=== PATIENT | female | born 1995 | race Caucasian/White ===

== ENCOUNTER 2020-06-01 16:27 | Emergency (ER) | payer OTHER ==
[~2020-06-01] VITALS: Ht 162.6 cm; Wt 108.9 kg
[2020-06-01 16:35] VITALS: BP 138/80
--- NOTE | 2020-06-01 16:35 | NUR ---
PT BIBSELF WITH C/O CYST ON LEFT GROIN AREA X1 WEEK. C/O PAIN OF 6/10. NO FEVER NOTED. V/S STABLE. AWAITING FOR MD JOHNSON
[2020-06-01] MEDS ORDERED: LIDOCAINE 1%-EPI 1:100,000 20 ML VIAL ONE (16:44)
[2020-06-01] MEDS ORDERED: LIDOCAINE 1%-EPI 1:100,000 50 ML VIAL IJ ONE (17:00)
== END 2020-06-01 17:14 | disposition home or self-care (01) ==
LOC: ER 16:30
DX: L02.416 Cutaneous abscess of left lower limb (principal); L73.2 Hidradenitis suppurativa; F17.200 Nicotine dependence, unspecified, uncomplicated; Z90.89 Acquired absence of other organs
CPT/HCPCS: 10060; 99283; A6403; J3490 ×2

== ENCOUNTER 2020-06-13 18:28 | Emergency (ER) | payer OTHER ==
[~2020-06-13] VITALS: Ht 162.6 cm; Wt 108.9 kg
--- NOTE | 2020-06-13 18:36 | NUR ---
CAME IN FOR SUICIDAL IDEATION OF WALKING THROUGH TRAFFIC. TO ER BED 14, HOOKED TO MONITOR, CHANGE DTO HOSP GOWN, WARM BLANKET PROVIDED, SITTER AT BEDSIDE, AWAITING MD JOHNSON
--- NOTE | 2020-06-13 18:37 | NUR ---
DR GUERRA AT BEDSIDE
--- NOTE | 2020-06-13 18:45 | NUR ---
ER PHLEB AT BEDSIDE FOR BLOOD DRAW.
--- NOTE | 2020-06-13 18:48 | NUR ---
COVID SPECIMEN OBTAINED AND SENT TO LAB.
[2020-06-13 18:55] LABS: BILIRUBIN,URINE SMALL (NEGATIVE); BLOOD, URINE Trace-intact Ery/uL (NEGATIVE); COLOR,URINE Yellow (YELLOW); LEUKOCYTE ESTERASE ,URINE Negative (NEGATIVE); NITRITE, URINE Negative (NEGATIVE); PROTEIN,URINE 30 mg/dl (NEGATIVE); UGLUCOSE Negative (NEGATIVE); UROBILINOGEN,URINE 0.2 EU/dL (0.2)
[2020-06-13 19:00] LABS: BASOPHILS % (AUTO) 0.4 % (0.0-2.0); EOSINOPHILS % (AUTO) 2.7 % (0.0-6.0); HEMATOCRIT 43 % (33-45); HEMOGLOBIN 14.5 g/dL (11.5-14.8); LYMPHOCYTES # (AUTO) 3.3 /CMM (0.8-4.8); LYMPHOCYTES % (AUTO) 33.2 % (20.0-44.0); MEAN CORPUSCULAR HGB CONC 34 g/dl (31.0-36.0); MEAN CORPUSCULAR VOLUME 84 fL (82-100); MONOCYTES # (AUTO) 0.7 /CMM (0.1-1.30); MONOCYTES % (AUTO) 7.1 % (2.0-12.0); NEUTROPHILS # (AUTO) 5.6 /CMM (1.8-8.9); NEUTROPHILS % (AUTO) 56.6 % (43.0-81.0); PLATELET COUNT (AUTO) 395 /CMM (150-450); RED BLOOD CELL COUNT(AUTO) 5.16 MIL/uL (4.0-5.2); WHITE BLOOD COUNT (AUTO) 9.9 K/uL (4.3-11.0)
[2020-06-13] MEDS ORDERED: LORAZEPAM 1 MG TABLET PO ONE (19:00)
[2020-06-13 19:07] LABS: CALCIUM, SERUM 9.2 mg/dL (8.5-10.1); CARBON DIOXIDE 26 mmol/L (21-32); CHLORIDE 101 mmol/L (98-107); GLUCOSE 110 mg/dL (74-106); POTASSIUM 3.7 mmol/L (3.5-5.1); SODIUM SERUM 135 mmol/L (136-145); UREA NITROGEN, BLOOD 9 mg/dL (7-18)
[2020-06-13 19:12] LABS: ALANINE AMINOTRANSFERASE 39 U/L (12-78); ALBUMIN 3.7 g/dL (3.4-5.0); ALCOHOL, BLOOD < 3 mg/dL (0-0); ALKALINE PHOSPHATASE 107 U/L (46-116); ASPARTATE AMINOTRANSFERASE 31 U/L (15-37); BILIRUBIN,DIRECT 0.3 mg/dL (0.0-0.2); BILIRUBIN,TOTAL 1.5 mg/dL (0.2-1.0); TOTAL PROTEIN, SERUM 7.7 g/dL (6.4-8.2)
[2020-06-13 19:13] LABS: ACETAMINOPHEN < 2 ug/ml (10-30)
[2020-06-13 19:17] LABS: BACTERIA,URINE Rare /HPF (None Seen); SQUAMOUS EPITHELIAL CELL,UR Few /HPF (None Seen); WBC,URINE NONE SEEN /HPF (0-3)
--- NOTE | 2020-06-13 19:25 | NUR ---
FACESHEET AND CLINICALS FAXED TO [facility].
--- NOTE | 2020-06-14 00:42 | NUR ---
[facility] project manager at bedside for eval.
--- NOTE | 2020-06-14 01:31 | NUR ---
pt cleared by [facility] poultry technician. Pt ok to be discharged per Dr Barakat. Patient discharged to home in stable condition. Written and verbal after care instructions given. Patient verbalizes understanding of instruction.Patient is awake and alert to self, day, and place. Pt ambulatory with a steady gait
[2020-06-14 01:32] VITALS: BP 141/92
== END 2020-06-14 01:33 | disposition home or self-care (01) ==
LOC: ER 18:32
DX: R45.851 Suicidal ideations (principal); F19.10 Other psychoactive substance abuse, uncomplicated; F17.200 Nicotine dependence, unspecified, uncomplicated; F15.129 Other stimulant abuse with intoxication, unspecified; F32.9 Major depressive disorder, single episode, unspecified; Z20.828 Contact with and (suspected) exposure to other viral communicable diseases
CPT/HCPCS: 36415; 80048; 80076; 80299; 80307; 80320; 81001; 85025; 87426; 99285; C9803; 81000-TC; G0480